=== PATIENT | male | born 1970 | race Two or more races ===

== ENCOUNTER 2023-06-16 21:23 | Emergency (ER) | payer OTHER ==
[~2023-06-16] VITALS: Ht 170.2 cm; Wt 105.7 kg
[2023-06-16] MEDS ORDERED: SIMVASTATIN20 MG PO (22:23)
[2023-06-16] MEDS ORDERED: LISINOPRIL20 MG (22:24)
[2023-06-17 00:02] LABS: HEMATOCRIT 43.9 % (39.0-48.0); HEMOGLOBIN 14.7 g/dL (13-16.00); MEAN CELL VOLUME 81.4 fL (80.0-100.00); MEAN CORPUSCULAR HEMOGLOBIN 27.2 pg (27.00-32.0); MEAN CORPUSCULAR HGB CONC 33.4 g/dl (32.0-36.0); PLATELET COUNT 142 K/uL (150-450); RED CELL DISTRIBUTION WIDTH 13.9 % (11.5-14.5)
[2023-06-17 00:25] LABS: ALBUMIN 4.1 gm/dL (3.4-5.0); BILIRUBIN TOTAL 0.34 mg/dL (0.3-1.2); CALCIUM 9.5 mg/dL (8.5-10.1); CREATININE SERUM 0.94 mg/dL (0.70-1.30); GFR 83.95; GLOBULINA 4.1 G/DL (2.4-3.5); POTASSIUM 4.91 mEq/L (3.5-5.1); TOTAL PROTEIN 8.2 gm/dL (6.4-8.2)
[2023-06-17 02:14] LABS: ABG PH 7.437 (7.35-7.45); ABG PO2 63.8 mmHg (80-100); ABG pCO2 33.4 mmHg (35-45)
[2023-06-17 02:15] LABS: BASE EXCESS -1.3 mmol/l; SaO2 92.8 %; Tco2 23.1 mmol/l; allen test SATISFACTORY; o2 21 %; puncture site RADIAL RIGHT
[2023-06-17] MEDS ORDERED: OSEL75CA PO (04:31)
[2023-06-17] MEDS ORDERED: ZYNCOF 20-400120 ML PO (04:31)
[2023-06-17] MEDS ORDERED: BUDESONIDE0.5 MG/2 M IH (04:31)
[2023-06-17] MEDS ORDERED: ALBUTEROL2.5 MG/3 M IH (04:31)
== END 2023-06-17 04:38 ==
LOC: ER 21:23
PROVIDERS: General Practice
DX: J10.1 Influenza due to other identified influenza virus with other respiratory manifestations (principal); R53.81 Other malaise; Z20.822 Contact with and (suspected) exposure to COVID-19